=== PATIENT | male | born 1955 | race Caucasian/White ===

== ENCOUNTER 2016-11-15 12:39 | Outpatient (CLI) | payer OTHER | END 2016-11-15 12:40 | disposition home or self-care (01) | DX: R97.20 Elevated prostate specific antigen [PSA] (principal) ==

== ENCOUNTER 2020-02-10 12:11 | Outpatient (CLI) | payer MEDICARE | END 2020-02-10 12:12 | disposition critical access hospital (66) | LOC: EMS 12:11 | PROVIDERS: ATTEND Surgery | DX: R41.82 Altered mental status, unspecified (principal); M54.2 Cervicalgia; M54.9 Dorsalgia, unspecified; M25.512 Pain in left shoulder; W11.XXXA Fall on and from ladder, initial encounter; Y93.H2 Activity, gardening and landscaping; Y92.007 Garden or yard of unspecified non-institutional (private) residence as the place of occurrence of the external cause | CPT/HCPCS: A0425; A0429 ==

== ENCOUNTER 2020-02-10 12:19 | Inpatient (IN) | payer MEDICARE, OTHER ==
--- NOTE | 2020-02-10 12:29 | ED Physician Documentation ---
PD HPI Fall - Stated complaint Stated Complaint: 5' FALL - History obtained from History obtained from: Patient (65-year-old generally healthy man with history of hypertension fell about 5 feet off of a ladder, thinks his upper back hit first. No headache. No neck pain. No extremity pain. Pain in the left upper back is described as moderate and declines pain medication on initial evaluation.) Review of Systems Ten Systems: 10 systems reviewed and negative Constitutional: reports: Reviewed and negative Cardiac: denies: Chest pain / pressure, Palpitations Respiratory: denies: Dyspnea, Cough GI: denies: Abdominal Pain, Nausea, Vomiting PD PAST MEDICAL HISTORY - Past Medical History Past Medical History: Yes Cardiovascular: Hypertension - Present Medications Home Medications: Ambulatory Orders Medication Instructions Recorded Confirmed Hydrocodone/Acetaminophen 1 - 2 each PO Q6H PRN #20 tablet 02/10/20 [Hydrocodon-Acetaminophen 5-325] - Allergies Allergies/Adverse Reactions: Allergies Allergy/AdvReac Type Severity Reaction Status Date / Time No Known Drug Allergies Allergy Verified 02/10/20 12:31 - Social History Does the pt smoke?: No Does the pt drink ETOH?: No Does the pt have substance abuse?: No - Family History Family history: reports: Non contributory PD ED PE NORMAL - Vitals Vital signs reviewed: Yes - General General: Alert and oriented X 3, No acute distress, Other (Initial evaluation he was in a c-collar and on a backboard. This was discontinued after exam because of no evidence of spinal injury.) - HEENT HEENT: PERRL, EOMI - Neck Neck: Supple, no meningeal sign, No bony TTP - Cardiac Cardiac: RRR, No murmur - Respiratory Respiratory: No respiratory distress, Clear bilaterally - Abdomen Abdomen: Non tender - Extremities Extremities: No deformity, No tenderness to palpate, Other (Winces with motion of the left upper back and tender near the medial left scapula, no midline spinal tenderness. The patient has equal and normal Achilles and patellar reflexes bilaterally. Normal sensation in all areas of the legs. Patient denies saddle anesthesia. Normal strength in flexion-extension at the ankles, knees, and flexion of the hips.) - Neuro Neuro: Alert and oriented X 3, Normal speech Results - Vitals Vitals: Vital Signs - 24 hr 02/10/20 02/10/20 12:31 14:34 Temperature 37.0 C Heart Rate 94 98 Respiratory 22 22 Rate Blood Pressure 188/102 H 172/98 H O2 Saturation 100 100 Oxygen O2 Source Room air - Labs Labs: Laboratory Tests 02/10/20 02/10/20 15:15 15:15 WBC 13.7 H RBC 4.96 Hgb 15.7 Hct 45.4 MCV 91.5 MCH 31.7 H MCHC 34.6 RDW 12.4 Plt Count 172 MPV 10.2 Neut # (Auto) 12.0 H Lymph # (Auto) 0.7 L Treasure # (Auto) 0.8 Eos # (Auto) 0.0 Baso # (Auto) 0.0 Absolute Nucleated RBC 0.00 Nucleated RBC % 0.0 PT 12.0 INR 1.1 - Rads (name of study) CT Chest Radiology: EMP read contemporaneously (1. Multiple acute fractures of the left first through ninth ribs superimposed on old left rib fractures. Acute fractures include segmental fractures of the third, fourth, sixth, and seventh ribs. 2. Associated small extrapleural hematoma at the apex of the left hemithorax as well as tiny left hemopneumothorax. Pneumothorax measures 3-4 mm. 3. A 14 mm groundglass opacity in the lingula with surrounding small nodules is favored to represent infectious or inflammatory process. However, follow-up chest CT is recommended in 6-12 months in accordance with Fleischner Society guidelines. 4. Additional scattered subcentimeter nodules are demonstrated. Clustered, branching nodules in the left lower lobe are suggestive of mucous plugging and bronchiolitis. However, other nodules are indeterminate. Attention is recommended on follow-up chest CT. ) PD MEDICAL DECISION MAKING - ED course ED course: 65-year-old gentleman presents with fall from ladder injuring his left back. CT imaging demonstrates 9 fractured ribs with tiny left hemopneumothorax and segmental fractures of the third, fourth, sixth, and seventh ribs. There are also some incidental findings were discussed with him and I given a copy of the CAT scan. I recommended either transfer to a trauma center or at a minimum admission to the hospital here for serial exams, incentive spirometry, and follow-up chest x-ray. He did not want to stay in the hospital. I discussed with him the dangers of leaving but he is taking that upon himself and leaving AGAINST MEDICAL ADVICE. He is able to verbalize back to me the dangers of leaving which include and disability. RT did come by and teach him how to do incentive spirometry. He was subsequently completely reexamined which demonstrated still no evidence of head or neck injury, or abdominal injury. He did have a scrape on the right hunter and tetanus was updated. However on further review he decided that perhaps he should not "be stupid "and stay in the hospital, the on-call surgeon was paged at 3:[address] Hadry will admit. Note that rib frx protocol suggests consideration of xfer to trauma ctr for >3 rib frxs and age >65, but patient refused and has no need for pain meds during ED stay. Departure - Departure Disposition: ED Place in Observation Clinical Impression: Hemopneumothorax on left Fall from ladder Qualifiers: Encounter type: initial encounter Qualified Code(s): W11.XXXA - Fall on and from ladder, initial encounter Multiple rib fractures Qualifiers: Encounter type: initial encounter Fracture type: closed Laterality: left Qualified Code(s): S22.42XA - Multiple fractures of ribs, left side, initial encounter for closed fracture Condition: Good Record reviewed to determine appropriate education?: Yes Instructions: ED Fx Rib, ED Pneumothorax Blunt Trauma Prescriptions: Hydrocodone/Acetaminophen [Hydrocodon-Acetaminophen 5-325] 1 - 2 each PO Q6H PRN #20 tablet PRN Reason: pain Comments: As discussed, I have recommended you that you stay in the hospital or get transferred to a trauma center for admission. You have refused. In lieu of that I do recommend coming back tomorrow morning for a recheck and repeat chest x-ray. Sooner if worsening. You do have incidental findings on the CAT scan, recommend repeat chest CT in 6 to 12 months to follow-up on this.
--- NOTE | 2020-02-10 14:01 | CT Report ---
Reason: L posterior back trauma Procedure Date: 02/10/2020 Accession Number: [id number] / [id number] Procedure: CT - CHEST WO CPT Code: Addended Final Report FULL RESULT: EXAM: CT CHEST EXAM DATE: 02/10/2020 12:52 PM. CLINICAL HISTORY: Left posterior back pain, fall from height. COMPARISONS: None. TECHNIQUE: Routine helical CT imaging was performed through the chest. IV contrast: None. Reconstructions: Coronal and sagittal. In accordance with CT protocol optimization, one or more of the following dose reduction techniques were utilized for this exam: automated exposure control, adjustment of mA and/or KV based on patient size, or use of iterative reconstructive technique. FINDINGS: Left pneumothorax, measuring 3-4 mm in the anterior and medial aspect of the left upper chest (series 4, images 61 and 78). There is trace intermediate attenuation left pleural effusion, suggestive of trace hemothorax. There is also a lobulated density at the left apex, measuring approximately 11 mm in width (series 8, image 46). This is suggestive of extrapleural hematoma. There are no findings strongly suspicious for contusion or laceration. There is a 14 x 10 mm groundglass opacity in the inferior segment of the lingula, adjacent to the fissure (series 4, image 184). The central location is not consistent with pulmonary contusion. There are several surrounding small nodules measuring up to 5 mm (series 4, images 161, 162, and 185), suggestive of nonspecific infectious or inflammatory process. In the left lower lobe, there are branching nodular densities (series 4, image 197), suggestive of mucous plugging. Surrounding small nodules are demonstrated, measuring up to 5 mm (series 4, images 195 and 200). Additional scattered small nodules include adjacent 2 mm nodules in the posterior segment of the right upper lobe (series 4, image 72), a 4 mm nodule in the superior segment of the right lower lobe (series 4, image 161), and a 2 mm lateral along the right minor fissure (series 4, image 172). There is no right pleural effusion or right-sided pneumothorax. Mediastinum: Heart size is within normal limits. There is no pericardial effusion. No mediastinal hematoma or pneumomediastinum. No mediastinal adenopathy. The thoracic aorta is normal in caliber. Bones: There are multiple old left rib fractures. However, superimposed acute fractures are demonstrated of the left posterior first, second, third, fourth, sixth, seventh, and eighth ribs; left posterior lateral ninth rib; left anterolateral second rib; and left lateral third, fourth, fifth, sixth, and seventh ribs. Visualized Abdomen: There is a 1.8 cm cyst in hepatic segment 8 (series 3, image 52). Additional subcentimeter hypoattenuating foci are present in the liver, too small to characterize. Remainder of the visualized upper abdomen is unremarkable by noncontrast CT. No peritoneal free fluid in the upper abdomen. Other: None. IMPRESSION: 1. Multiple acute fractures of the left first through ninth ribs superimposed on old left rib fractures. Acute fractures include segmental fractures of the third, fourth, sixth, and seventh ribs. 2. Associated small extrapleural hematoma at the apex of the left hemithorax as well as tiny left hemopneumothorax. Pneumothorax measures 3-4 mm. 3. A 14 mm groundglass opacity in the lingula with surrounding small nodules is favored to represent infectious or inflammatory process. However, follow-up chest CT is recommended in 6-12 months in accordance with Fleischner Society guidelines. 4. Additional scattered subcentimeter nodules are demonstrated. Clustered, branching nodules in the left lower lobe are suggestive of mucous plugging and bronchiolitis. However, other nodules are indeterminate. Attention is recommended on follow-up chest CT. LUCI The call report notification system was initiated by Dr. Mauricio Leon at 01:56 PM on 02/10/2020. ADDENDUM: 02/10/20 14:17 The above call report findings were discussed with Dr. Alex Isabel by Dr. Mauricio Leon at 02:00 PM on 02/10/2020.
[2020-02-10] MEDS ORDERED: TETANUS/DIPHTHERIA/PERTUSSIS 0.5 ML SYRINGE IM ONE (14:06)
[2020-02-10 15:26] LABS: BASOPHILS % (AUTO) 0.3 %; EOSINOPHILS % (AUTO) 0.1 %; HGB - HEMOGLOBIN 15.7 g/dL (14.0-18.0); LYMPHOCYTES # (AUTO) 0.7 10^3/uL (1.5-3.5); LYMPHOCYTES % (AUTO) 5.2 %; MEAN CORPUSCULAR HEMOGLOBIN 31.7 pg (27.0-31.0); MEAN CORPUSCULAR HGB CONC 34.6 g/dL (32.0-36.0); MEAN CORPUSCULAR VOLUME 91.5 fL (80.0-94.0); MEAN PLATELET VOLUME 10.2 fL (7.4-11.4); MONOCYTES # (AUTO) 0.8 10^3/uL (0.0-1.0); MONOCYTES % (AUTO) 5.8 %; NEUTROPHILS % (AUTO) 87.9 %; PLT - PLATELET COUNT 172 10^3/uL (130-450); RED BLOOD COUNT 4.96 10^6/uL (4.70-6.10); RED CELL DISTRIBUTION WIDTH 12.4 % (12.0-15.0); WHITE BLOOD COUNT 13.7 x10^3/uL (4.8-10.8)
[2020-02-10 15:30] LABS: INR 1.1 (0.8-1.2)
[2020-02-10 15:35] LABS: ALBUMIN 4.5 g/dL (3.2-5.5); ALBUMIN/GLOBULIN RATIO 1.6 (1.0-2.2); BILIRUBIN,TOTAL 0.6 mg/dL (0.2-1.0); CALCIUM 9.3 mg/dL (8.5-10.3); CREATININE 1.1 mg/dL (0.6-1.2); TOTAL PROTEIN 7.3 g/dL (6.7-8.2)
[2020-02-10] MEDS ORDERED: SODIUM CHLORIDE FLUSH 0.9% 10 ML SYRINGE IVP PRN (16:14)
[2020-02-10] MEDS ORDERED: HYDROmorphone PCA 20MG/100ML IV PRN (16:40)
[2020-02-10] MEDS ORDERED: HYDROmorphone 0.5 MG/0.5 ML SYRINGE IVP PRN (17:21)
[2020-02-10] MEDS: DEXTROSE 5%-0.9% NACL 1,000 ML IV SCH (17:38)
[2020-02-10] MEDS: SODIUM CHLORIDE FLUSH 0.9% 10 ML SYRINGE IVP SCH ×2 (17:44→23:52)
[2020-02-10] MEDS ORDERED: ACETAMINOPHEN 500 MG TABLET PO PRN (18:23)
[2020-02-10] MEDS ORDERED: IBUPROFEN 400 MG TABLET PO PRN (18:30)
[2020-02-10] MEDS ORDERED: PSEUDOEPHEDRINE 30 MG TABLET PO PRN (18:32)
[2020-02-10] MEDS: KETOROLAC 30 MG/ML VIAL IVP SCH ×2 (19:09→23:51)
--- NOTE | 2020-02-10 19:22 | HISTORY & PHYSICAL EXAMINATION ---
Chief Complaint - Chief Complaint Chief Complaint: back pain and pain with breathing History of Present Illness - Admitted From Admitted From:: ED - History Obtained From Records Reviewed: yes History obtained from: patient Exam Limitations: none - History of Present Illness HPI Comment/Other: 5 foot fall from ladder earlier today. Seen and evaluated through the ED. No loss of consciousness. No distress. No complaint other than upper left back/ chest pain. History - Past Medical History Cardiovascular: reports: Hypertension (past use of lisinopril) Respiratory: reports: None Neuro: reports: Other Endocrine/Autoimmune: reports: None GI: reports: None : reports: None HEENT: reports: None Psych: reports: None Musculoskeletal: reports: None Derm: reports: None Other Past Medical History: TBI Meds/Allgy - Home Medications Home Medications: Ambulatory Orders Medication Instructions Recorded Confirmed Hydrocodone/Acetaminophen 1 - 2 each PO Q6H PRN #20 tablet 02/10/20 [Hydrocodon-Acetaminophen 5-325] - Allergies Allergies/Adverse Reactions: Allergies Allergy/AdvReac Type Severity Reaction Status Date / Time No Known Drug Allergies Allergy Verified 02/10/20 12:31 Review of Systems - Other Findings Other Findings: 10 pt ros otherwise unremarkable Exam - Vital Signs Vital Signs: Vital Signs x48h Temp Pulse Pulse Resp BP BP Pulse Ox 02/10/20 18:36 100 20 177/90 H 100 02/10/20 18:18 91 16 173/110 H 100 02/10/20 18:00 96 15 157/99 H 96 02/10/20 17:45 96 19 159/103 H 96 02/10/20 17:30 182/99 H 97 02/10/20 17:27 37.4 C 18 182/107 H 02/10/20 17:25 37.0 C 90 22 165/99 H 100 02/10/20 16:00 95 17 156/115 H 100 02/10/20 14:34 98 22 172/98 H 100 02/10/20 12:31 37.0 C 94 22 188/102 H 100 - Physical Exam General Appearance: positive: No acute distress, Alert Eyes Bilateral: positive: Normal inspection, PERRL, EOMI Neck: positive: No JVD, Trachea midline Respiratory: positive: No respiratory distress Cardiovascular: positive: Regular rate & rhythm Abdomen: positive: Non-tender, No distention Extremities: positive: Non-tender Neurologic/Psychiatric: positive: Oriented x3 Conclusion/Plan - Problem List (1) Fall from ladder Conclusion/Plan: Plan close observation. Pain management. CXR in am. He has no respiratory distress at this time Qualifiers: Encounter type: initial encounter Qualified Code(s): W11.XXXA - Fall on and from ladder, initial encounter (3) Multiple rib fractures Qualifiers: Encounter type: initial encounter Fracture type: closed Laterality: left Qualified Code(s): S22.42XA - Multiple fractures of ribs, left side, initial encounter for closed fracture - Lab Results Fish Bones: 02/10/20 15:15 02/10/20 15:15 - Diagnostic Imaging Results Diagnostic Imaging Results: positive: Final report reviewed Diagnostic Imaging Results Comments: see chart. multiple left upper rib fractures and small hemopneumothorax
[2020-02-10] MEDS: METOPROLOL TARTRATE 25 MG TABLET PO SCH (20:56)
[2020-02-11] MEDS: oxyCODONE 5 MG TABLET PO PRN ×2 (01:29→10:30)
[2020-02-11] MEDS: DEXTROSE 5%-0.9% NACL 1,000 ML IV SCH (03:17)
[2020-02-11] MEDS: KETOROLAC 30 MG/ML VIAL IVP SCH (07:02)
--- NOTE | 2020-02-11 08:03 | PHARMACY PROGRESS NOTE ---
- Best Possible Medication History Admit Date and Time: 02/10/20 1614 Processed by: Pharmacy Medication History completed: Yes Patient Interview: Completed As the person ultimately responsible for medication therapy, providers are able to order a medication from an existing home medication list in [facility] via the "Reconcile Routine" prior to Confirmation of that medication by ground support equipment fitter. Such practice is discouraged except when the physician, in their clinical pau gment, deems that a medical need exists for a medication without regard to previous use.
[2020-02-11] MEDS: METOPROLOL TARTRATE 25 MG TABLET PO SCH (08:57)
[2020-02-11] MEDS: SODIUM CHLORIDE FLUSH 0.9% 10 ML SYRINGE IVP SCH (08:58)
[2020-02-11] MEDS ORDERED: LORATADINE 10 MG TABLET PO SCH (09:00)
--- NOTE | 2020-02-11 09:21 | PROVIDER PROGRESS NOTE ---
Subjective - Prog Note Date Prog Note Date: 02/11/20 - Subjective Pt reports feeling: Improved (looks better. more comfortable. breathing better. no significant congestion) Objective - Vital Signs/Intake & Output Vital Signs: Vital Signs x48h Temp Pulse Resp BP BP Pulse Ox 02/11/20 09:00 74 16 162/95 H 98 02/11/20 08:57 162/95 H 02/11/20 08:00 36.9 C 73 16 182/96 H 100 02/11/20 07:15 14 02/11/20 04:54 12 02/11/20 04:17 66 15 152/93 H 100 Intake & Output: Intake & Output 02/08/20 02/09/20 02/10/20 02/11/20 23:59 23:59 23:59 23:59 Intake Total 400 1415 Output Total 625 Balance 400 790 - Objective General Appearance: positive: No acute distress, Alert Eyes Bilateral: positive: Normal inspection, PERRL, EOMI Neck: positive: No JVD, Trachea midline Respiratory: positive: No respiratory distress Abdomen: positive: Non-tender, No distention Back: positive: Nml inspection Neurologic/Psychiatric: positive: Oriented x3 - Lab Results Fish Bones: 02/10/20 15:15 02/10/20 15:15 Other Labs: Lab Results x24hrs 02/10/20 02/10/20 02/10/20 Range/Units 17:47 15:15 15:15 WBC (4.8-10.8) x10^3/uL RBC (4.70-6.10) 10^6/uL Hgb (14.0-18.0) g/dL Hct (42.0-52.0) % MCV (80.0-94.0) fL MCH (27.0-31.0) pg MCHC (32.0-36.0) g/dL RDW (12.0-15.0) % Plt Count (130-450) 10^3/uL MPV (7.4-11.4) fL Neut # (Auto) (1.5-6.6) 10^3/uL Lymph # (Auto) (1.5-3.5) 10^3/uL Glenn # (Auto) (0.0-1.0) 10^3/uL Eos # (Auto) (0.0-0.7) 10^3/uL Baso # (Auto) (0.0-0.1) 10^3/uL Absolute Nucleated RBC x10^3/uL Nucleated RBC % /100WBC PT 12.0 (9.9-12.6) secs INR 1.1 (0.8-1.2) Sodium (135-145) mmol/L Potassium (3.5-5.0) mmol/L Chloride (101-111) mmol/L Carbon Dioxide (21-32) mmol/L Anion Gap (6-13) BUN (6-20) mg/dL Creatinine (0.6-1.2) mg/dL Estimated GFR (MDRD) (>89) Glucose (70-100) mg/dL Calcium (8.5-10.3) mg/dL Total Bilirubin (0.2-1.0) mg/dL AST (10-42) IU/L ALT (10-60) IU/L Alkaline Phosphatase (42-121) IU/L Total Protein (6.7-8.2) g/dL Albumin (3.2-5.5) g/dL Globulin (2.1-4.2) g/dL Albumin/Globulin Ratio (1.0-2.2) Lipase (22-51) U/L Nasal Screen MRSA (PCR) NEGATIVE (NEGATIVE) Blood Type O POSITIVE Antibody Screen NEGATIVE 02/10/20 02/10/20 Range/Units 15:15 15:15 WBC 13.7 H (4.8-10.8) x10^3/uL RBC 4.96 (4.70-6.10) 10^6/uL Hgb 15.7 (14.0-18.0) g/dL Hct 45.4 (42.0-52.0) % MCV 91.5 (80.0-94.0) fL MCH 31.7 H (27.0-31.0) pg MCHC 34.6 (32.0-36.0) g/dL RDW 12.4 (12.0-15.0) % Plt Count 172 (130-450) 10^3/uL MPV 10.2 (7.4-11.4) fL Neut # (Auto) 12.0 H (1.5-6.6) 10^3/uL Lymph # (Auto) 0.7 L (1.5-3.5) 10^3/uL Glenn # (Auto) 0.8 (0.0-1.0) 10^3/uL Eos # (Auto) 0.0 (0.0-0.7) 10^3/uL Baso # (Auto) 0.0 (0.0-0.1) 10^3/uL Absolute Nucleated RBC 0.00 x10^3/uL Nucleated RBC % 0.0 /100WBC PT (9.9-12.6) secs INR (0.8-1.2) Sodium 138 (135-145) mmol/L Potassium 4.1 (3.5-5.0) mmol/L Chloride 103 (101-111) mmol/L Carbon Dioxide 23 (21-32) mmol/L Anion Gap 12.0 (6-13) BUN 22 H (6-20) mg/dL Creatinine 1.1 (0.6-1.2) mg/dL Estimated GFR (MDRD) 67 L (>89) Glucose 139 H (70-100) mg/dL Calcium 9.3 (8.5-10.3) mg/dL Total Bilirubin 0.6 (0.2-1.0) mg/dL AST 43 H (10-42) IU/L ALT 38 (10-60) IU/L Alkaline Phosphatase 97 (42-121) IU/L Total Protein 7.3 (6.7-8.2) g/dL Albumin 4.5 (3.2-5.5) g/dL Globulin 2.8 (2.1-4.2) g/dL Albumin/Globulin Ratio 1.6 (1.0-2.2) Lipase 21 L (22-51) U/L Nasal Screen MRSA (PCR) (NEGATIVE) Blood Type Antibody Screen - Diagnostic Imaging Diagnostic Imaging Results: positive: Other (todays cxr pending) Assessment/Plan - Problem List (1) Fall from ladder Qualifiers: Encounter type: initial encounter Qualified Code(s): W11.XXXA - Fall on and from ladder, initial encounter (3) Multiple rib fractures Impression: much improved today. plan review this am cxr and if ok d/c home Qualifiers: Encounter type: initial encounter Fracture type: closed Laterality: left Qualified Code(s): S22.42XA - Multiple fractures of ribs, left side, initial encounter for closed fracture
--- NOTE | 2020-02-11 09:33 | DISCHARGE SUMMARY ---
"Discharge Summary Admit Date: 02/10/20 Discharge Date: 02/11/20 Discharging Provider: murray martinez Code Status: Attempt Resuscitation Discharge Disposition: 01 Home, Self Care - DIAGNOSES Admission Diagnoses: fall, left rib fractures and small hemopneumothorax Discharge Diagnoses with Status of Each Condition: same improved - HPI History of Present Illness: fall yesterday with above injury - CONSULTS | PROCEDURES Procedures: observation and pain management - ALLERGIES Allergies/Adverse Reactions: Allergies Allergy/AdvReac Type Severity Reaction Status Date / Time No Known Drug Allergies Allergy Verified 02/10/20 12:31 - MEDICATIONS Home Medications: Ambulatory Orders Medication Instructions Recorded Confirmed Calcium Carbonate/Vitamin D3 1 tab PO BID 02/11/20 02/11/20 [Calcium 500-Vit D3 400 Chew Tb] Ibuprofen [Motrin] 800 mg PO Q8H PRN 02/11/20 02/11/20 Melatonin/Pyridoxine [Melatonin 5 5 mg PO QPM PRN 02/11/20 02/11/20 mg Tablet] Multivitamin [Theragran] 1 each PO DAILY 02/11/20 02/11/20 Mesa-3 Fatty Acids/Fish Oil 1,000 mg PO DAILY 02/11/20 02/11/20 [Mesa-3 Fish Oil 1,000 mg Sfgl] Pseudoephedrine [Sudafed] 30 mg PO Q6H PRN 02/11/20 02/11/20 - LABS Result Diagrams: 02/10/20 15:15 02/10/20 15:15"
--- NOTE | 2020-02-11 09:41 | XRAY Report ---
Reason: fall and hemopneumothorax Procedure Date: 02/11/2020 Accession Number: [id number] / [id number] Procedure: XR - Chest 2 View X-Ray CPT Code: 70261 Final Report FULL RESULT: PROCEDURE: Chest 2 View X-Ray INDICATIONS: fall and hemopneumothorax TECHNIQUE: 2 views of the chest acquired. COMPARISON: CT chest 02/10/2020. FINDINGS: Surgical changes and devices: None. Lungs and pleura: There is a small left pleural effusion with a suspected small lateral loculated component extending superiorly versus pleural thickening. No definite pneumothorax. Mild linear opacities in the left lung base likely represent atelectasis. The right lung is clear. Mediastinum: Mediastinal contours are within normal limits without definite shift. Heart size is normal. Bones and chest wall: Moderately displaced fractures of the left second through ninth ribs redemonstrated as seen on the recent CT. Soft tissues appear unremarkable. IMPRESSION: 1. Small left pleural effusion redemonstrated with a suspected small loculated component laterally, versus pleural thickening. 2. No definite pneumothorax. 3. Multiple left rib fractures redemonstrated, as seen on the recent CT. Reviewed by: Denzel Saab MD on 02/11/2020 9:16 AM PDT Approved by: Denzel Saab MD on 02/11/2020 9:16 AM PDT Station ID: [id number]
[2020-02-11 10:02] VITALS: BP 174/103
[2020-02-11] MEDS ORDERED: IBUPROFEN 400 MG TABLET PO PRN (18:00)
== END 2020-02-11 11:07 | disposition home or self-care (01) | DRG 183 ==
LOC: EDUNIT# → ED 12:19 → ICU 16:14
PROVIDERS: ADMIT Surgery; ATTEND Surgery
DX: S22.42XA Multiple fractures of ribs, left side, initial encounter for closed fracture (principal); S27.2XXA Traumatic hemopneumothorax, initial encounter; W11.XXXA Fall on and from ladder, initial encounter; I10 Essential (primary) hypertension; R91.8 Other nonspecific abnormal finding of lung field
CPT/HCPCS: 36415; 71046; 71250; 80053; 83690; 85025; 85610; 86850; 86900; 86901; 87150; 90471; 90715; 99285; A9270

== ENCOUNTER 2023-10-06 08:18 | Outpatient (CLI) | payer OTHER, MEDICARE ==
[2023-10-06 08:36] LABS: BASOPHILS % (AUTO) 0.8 %; EOSINOPHILS # (AUTO) 0.2 10^3/uL (0.0-0.7); EOSINOPHILS % (AUTO) 3.8 %; HCT - HEMATOCRIT 46.3 % (42.0-52.0); HGB - HEMOGLOBIN 15.5 g/dL (14.0-18.0); LYMPHOCYTES # (AUTO) 1.6 10^3/uL (1.5-3.5); LYMPHOCYTES % (AUTO) 29.8 %; MEAN CORPUSCULAR HEMOGLOBIN 31.4 pg (27.0-31.0); MEAN CORPUSCULAR HGB CONC 33.5 g/dL (32.0-36.0); MEAN CORPUSCULAR VOLUME 93.7 fL (80.0-94.0); MEAN PLATELET VOLUME 10.1 fL (7.4-11.4); MONOCYTES # (AUTO) 0.7 10^3/uL (0.0-1.0); MONOCYTES % (AUTO) 13.1 %; NEUTROPHILS # (AUTO) 2.8 10^3/uL (1.5-6.6); NEUTROPHILS % (AUTO) 52.3 %; PLT - PLATELET COUNT 168 10^3/uL (130-450); RED BLOOD COUNT 4.94 10^6/uL (4.70-6.10); RED CELL DISTRIBUTION WIDTH 12.5 % (12.0-15.0); WHITE BLOOD COUNT 5.3 x10^3/uL (4.8-10.8)
[2023-10-06 08:49] LABS: ALBUMIN 4.2 g/dL (3.2-5.5); ALBUMIN/GLOBULIN RATIO 1.4 (1.0-2.2); ALKALINE PHOSPHATASE 81 IU/L (42-121); ALT ALANINE AMINOTRANSFERASE 21 IU/L (10-60); AST ASPARTATE AMINOTRANSFERASE 23 IU/L (10-42); BILIRUBIN,TOTAL 0.7 mg/dL (0.2-1.0); BUN - BLOOD UREA NITROGEN 20 mg/dL (6-20); CALCIUM 9.2 mg/dL (8.5-10.3); CARBON DIOXIDE - CO2 31 mmol/L (21-32); CHLORIDE 100 mmol/L (101-111); CHOL/HDL RATIO 2.7 (<5.0); CHOLESTEROL 210 mg/dL; CREATININE 1.1 mg/dL (0.6-1.3); GFR - MDRD 66 (>89); GLUCOSE 110 mg/dL (74-104); HDL CHOLESTEROL 78 mg/dL; LDL CHOLESTEROL,CALCULATED 119 mg/dL; LDL/HDL RATIO 1.5 (<3.6); SODIUM 137 mmol/L (135-145); TOTAL PROTEIN 7.1 g/dL (6.4-8.9); TRIGLYCERIDES 64 mg/dL (48-352); VLDL CHOLESTEROL 13 mg/dL
[2023-10-06 09:04] LABS: THYROID STIMULATING HORMONE 1.96 uIU/mL (0.34-5.60)
[2023-10-06 09:13] LABS: ESTIMATED AVERAGE GLUCOSE 105 mg/dL (70-100); HEMOGLOBIN A1c% 5.3 % (4.27-6.07)
== END 2023-10-06 08:19 | disposition home or self-care (01) ==
LOC: LAB 08:18
PROVIDERS: ATTEND Physician Assistant Medical
DX: Z00.00 Encounter for general adult medical examination without abnormal findings (principal); E78.5 Hyperlipidemia, unspecified; I10 Essential (primary) hypertension; R97.20 Elevated prostate specific antigen [PSA]
CPT/HCPCS: 36415; 80053; 80061; 83036; 83721; 84153; 84443; 85025

== ENCOUNTER 2023-11-23 07:42 | Outpatient (CLI) | payer OTHER ==
--- NOTE | 2023-11-23 11:21 | Ultrasound Report ---
PROCEDURE: Arterial Visceral Complete INDICATIONS: HYPERTENSION TECHNIQUE: Real time scanning was performed of both kidneys, followed by Color and pulsed Doppler in terrogation of the renal vessels. COMPARISON: None FINDINGS: Evaluation of the right renal artery is limited secondary to bowel gas. Aortic peak systolic velocity: 150 cm/s. Right side: Mccullough-scale imaging: Kidney is 11 x 5.3 x 5 cm long. No hydronephrosis. No nephrolithiasis. Renal cortex is normal in echogenicity. No suspicious solid renal masses. Renal artery is not well seen secondary to bowel gas. The renal artery at the hilum demonstrates a ra leonila of 0.53. Renal vein: Patent, without thrombus. Peak renal/aortic ratio (RAR): Unable to calculate. Left side: Mccullough-scale imaging: Kidney is 12.8 x 5.7 x 4.5 cm long. No hydronephrosis. No nephrolithiasis. Re nal cortex is normal in echogenicity. No suspicious solid renal masses. Proximal renal artery peak systolic velocity: 0.7 cm/s. Mid-renal artery peak systolic velocity: 1.1 cm/s. Distal renal artery peak systolic velocity: 0.9 cm/s. Renal vein: Patent, without thrombus. Peak renal/aortic ratio (RAR): 1.1. IMPRESSION: 1.No hemodynamically significant stenosis of the left renal artery. 2.Evaluation of the right renal artery is limited secondary to bowel gas. If there is high clinical s uspicion, recommend a CTA or MRA of the abdomen for further evaluation. Reviewed by: Celeste Garcia MD on 11/23/2023 11:19 AM PDT Approved by: Celeste Gracia MD on 11/23/2023 11:19 AM PDT Station ID: [id number]
== END 2023-11-23 07:43 | disposition home or self-care (01) ==
LOC: DI 07:42
PROVIDERS: ATTEND Physician Assistant Medical
DX: I10 Essential (primary) hypertension (principal)
CPT/HCPCS: 93975